=== PATIENT | male | born 1975 | race Caucasian/White ===

== ENCOUNTER 2024-03-16 21:43 | Emergency (ER) | payer SELFPAY ==
[2024-03-16 21:44] VITALS: BP 148/91; PULSE 90; RESP 19; TEMP 37.1; O2SAT 99; BMI 35.4
[2024-03-16 21:49] VITALS: TEMP 37.1; O2SAT 97
--- NOTE | 2024-03-16 21:49 | CT_ITS ---
INDICATION: neck pain EXAMINATION: CT Spine Cervical W/O Contrast Injection TECHNIQUE: Helically acquired images were obtained of the cervical spine with sagittal and coronal reconstructed images. Individualized dose optimization techniques were used for this CT. IV contrast dosage and agent: None. COMPARISON: None. FINDINGS: VERTEBRAE: No fracture or subluxation. The craniocervical junction is unremarkable. Mild degenerative changes. NECK SOFT TISSUES: The prevertebral soft tissues are unremarkable. No pathologically enlarged lymph nodes. THYROID: Unremarkable. LUNG APICES: Groundglass pulmonary opacities in the partially visualized lung apices. CT/Spine Cervical without Contras IMPRESSION: 1. No fracture or subluxation. 2. Groundglass pulmonary opacities which may represent edema or pneumonia. Electronically Signed: Chidi Pitts DO at 23:09 EDT ,
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
--- NOTE | 2024-03-16 21:53 | CT_ITS ---
INDICATION: neck pain EXAMINATION: CT THORACIC SPINE TECHNIQUE: Helically acquired images were obtained of the thoracic spine with sagittal and coronal reconstructed images. Individualized dose optimization techniques were used for this CT. IV Contrast dosage and agent: None. COMPARISON: None. FINDINGS: VERTEBRAE: No fracture or subluxation. Mild degenerative changes. SOFT TISSUES: The paravertebral soft tissues are unremarkable. LUNGS/MEDIASTINUM: Right upper lobe groundglass pulmonary opacities. CT/Spine Thoracic without Contras IMPRESSION: No fracture or subluxation. Electronically Signed: Chidi Pitts DO at 23:22 EDT ,
--- NOTE | 2024-03-16 21:53 | CT_ITS ---
INDICATION: back pain EXAMINATION: CT LUMBAR SPINE - CT Spine Lumbar W/O Contrast Injection TECHNIQUE: Helically acquired images were obtained of the lumbar spine with sagittal and coronal reconstructed images. Individualized dose optimization techniques were used for this CT. COMPARISON: None. FINDINGS: VERTEBRAE: No fracture or subluxation. Spondylosis and degenerative disc disease with a prominent disc protrusion at L5-S1. SOFT TISSUES: The paravertebral soft tissues are unremarkable. ABDOMEN/PELVIS: Visualized abdomen and pelvis are unremarkable. CT/Spine Lumbar without Contrast IMPRESSION: 1. No fracture or subluxation. 2. Severe degenerative changes at L5-S1 with a prominent disc protrusion. Electronically Signed: Chidi Pitts DO at 23:24 EDT ,
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
--- NOTE | 2024-03-16 21:54 | EKG12_ITS ---
Test Reason : PALPITATIONS Blood Pressure : / mmHG Vent. Rate : 102 BPM Atrial Rate : 102 BPM P-R Int : 168 ms QRS Dur : 104 ms QT Int : 350 ms P-R-T Axes : 049 084 063 degrees QTc Int : 456 ms Sinus tachycardia Otherwise normal ECG Confirmed by Alvarez Anthony ([id number]), field map editor SATHYA PAREDES ([id number]) on 03/18/2024 10:52:37 AM Referred By: Confirmed By:Alvarez Anthony
--- NOTE | 2024-03-16 21:56 | RAD_ITS ---
INDICATION: pain EXAMINATION/TECHNIQUE: X-RAY - RIGHT XR Ankle Min 3 Views COMPARISON: None. FINDINGS: SOFT TISSUES: Mild soft tissue swelling. BONES/JOINTS: No fracture or dislocation. No significant degenerative changes. No erosive changes. RAD/Ankle min 3 Views IMPRESSION: No fracture or dislocation. Electronically Signed: Chidi Pitts DO at 23:26 EDT ,
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
--- NOTE | 2024-03-16 22:10 | RAD_ITS ---
INDICATION: ankle pain EXAMINATION/TECHNIQUE: X-RAY - LEFT XR Ankle Min 3 Views COMPARISON: None. FINDINGS: SOFT TISSUES: Mild soft tissue swelling. BONES/JOINTS: No fracture or dislocation. No significant degenerative changes. No erosive changes. RAD/Ankle min 3 Views IMPRESSION: No fracture or dislocation. Electronically Signed: Chidi Pitts DO at 23:27 EDT ,
[2024-03-16 22:11] LABS: Absolute Lymphocyte Count 2.26 X10^3/uL (0.83-4.51); Absolute Neutrophil Count 4.6 X10^3/uL (2.0-7.7); Basophil# 0.05 X10^3/uL; Basophil% 0.6 % (0-1); Eosinophils% 3.7 % (0-5); Hematocrit 39.2 % (40-54); Hemoglobin 13.1 g/dL (13.0-16.5); Lymphocyte # 2.26 X10^3/ul (0.83-4.51); Lymphocyte % 27.6 % (19-41); Mean Corp Hgb Conc 33.4 g/dL (32-36); Mean Corpuscular Hgb 28.7 pg (27.0-32.0); Mean Platelet Vol. 10.3 fl (6.2-12.0); Monocyte# 0.88 X10^3/uL; Monocyte% 10.7 % (0-10); NRBC Flagged by Analyzer 0 % (0-5); Neutrophil # 4.62 X10^3/uL (2.7-7.7); Neutrophil % 56.3 % (47-70); Platelet Count 218 K/mm3 (150-450); RBC Distribution Width CV 12.3 % (11.6-14.6); RBC Distribution Width SD 38.1 fl (35.1-43.9); Red Blood Count 4.56 M/mm3 (4.6-6.2); White Blood Count 8.2 K/mm3 (4.4-11.0)
[2024-03-16 22:23] LABS: International Normalized Ratio 1.1; Partial Thromboplast Time 23.9 Seconds (24.1-36.2); Prothrombin Time (Protime)PT. 13.9 SECONDS (11.7-14.9)
[2024-03-16] MEDS: 0.9% Normal Saline (1000mL) 1,000 ML 999 ML IV (22:24)
[2024-03-16 22:25] LABS: ALB/GLOB Ratio 1.3 RATIO (0.9-2.4); AST(SGOT) 33 U/L (15-37); Alanine Aminotransfer ALT/SGPT 37 U/L (16-61); Albumin, Serum 3.6 g/dL (3.2-5.0); Alkaline Phosphatase 54 U/L (45-117); Anion Gap 5 (5-15); BUN 18 mg/dL (7-18); Calcium,Total 8.3 mg/dL (8.5-10.1); Chloride 111 mmol/L (98-107); EST Glomerular Filtration Rate 68 mL/min (>60); Est Glom Filt Rate - Afr Amer 83 mL/min (>60); Estimated Creatinine Clearance 87.84 ml/min; Globulin 2.8 g/dL (2.2-4.2); Glucose 100 mg/dL (74-106); Potassium 4.7 mmol/L (3.5-5.1); Protein, Total 6.4 g/dL (6.4-8.2); Sodium Level 143 mmol/L (136-145)
[2024-03-16 22:27] VITALS: O2SAT 100; O2SAT 98
[2024-03-16 23:00] VITALS: BP 127/78; PULSE 104; RESP 18; O2SAT 95
[2024-03-17] VITALS: BP 126/72; PULSE 98; RESP 16; O2SAT 95
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
[2024-03-17 00:44] VITALS: BP 124/87; PULSE 101; RESP 18; TEMP 37.3; O2SAT 98
[2024-03-17 01:00] VITALS: BP 126/69; PULSE 107; RESP 20; O2SAT 94
[2024-03-17 01:04] LABS: Troponin-I HS 3 pg/mL (3.0-78.0)
== END 2024-03-17 01:48 | disposition short-term general hospital (02) ==
PROVIDERS: Emergency Provider Emergency Medicine; Visit Provider Emergency Medicine
DX: S27.321A Contusion of lung, unilateral, initial encounter (principal); R41.82 Altered mental status, unspecified; R09.02 Hypoxemia; V29.99XA Rider (driver) (passenger) of other motorcycle injured in unspecified traffic accident, initial encounter; E78.5 Hyperlipidemia, unspecified; R73.03 Prediabetes
CPT/HCPCS: 70450; 71260; 72125; 72128; 72131; 73610; 74177; 80053; 82077; 84484; 85025; 85610; 85730; 93005; 96360; 96361; 99285; J7030; Q9967; A4216